=== PATIENT | female | born 1970 | race American Indian/Alaskan Native ===

== ENCOUNTER 2019-10-11 17:30 | Emergency (ER) | payer SELFPAY ==
[2019-10-11] MEDS ORDERED: ACETAMINOPHEN 325 MG TAB PO ONE (19:49)
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
[2019-10-11 20:00] VITALS: BP 144/98
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
[2019-10-11] MEDS ORDERED: CYCLOBENZAPRINE 10 MG TAB PO ONE (21:07)
[2019-10-11] MEDS ORDERED: IBUPROFEN 800 MG TAB PO ONE (21:07)
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
[2019-10-11] MEDS ORDERED: ONDANSETRON 4 MG ODT TAB PO ONE (21:13)
[2019-10-11] MEDS ORDERED: ONDANSETRON 4 MG ODT TAB ONE (21:14)
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
== END 2019-10-11 22:03 | disposition home or self-care (01) ==
LOC: ED 17:30
DX: F07.81 Postconcussional syndrome (principal); M54.2 Cervicalgia; M54.5 Low back pain; M79.10 Myalgia, unspecified site; Z79.1 Long term (current) use of non-steroidal anti-inflammatories (NSAID); Z79.899 Other long term (current) drug therapy; Z90.89 Acquired absence of other organs; Z88.0 Allergy status to penicillin; Z98.51 Tubal ligation status; Z88.8 Allergy status to other drugs, medicaments and biological substances; V49.49XA Driver injured in collision with other motor vehicles in traffic accident, initial encounter; Y93.89 Activity, other specified; Y92.410 Unspecified street and highway as the place of occurrence of the external cause; Y99.8 Other external cause status
CPT/HCPCS: 70450; 72040; 72100; Q0162